=== PATIENT | female | born 1965 | race American Indian/Alaskan Native ===

== ENCOUNTER 2017-10-24 03:31 | Emergency (ER) | payer OTHER ==
[2017-10-24] MEDS ORDERED: Acetaminophen/oxyCODONE 325-5 MG Tab PO ONE (03:52)
--- NOTE | 2017-10-24 04:10 | EDM.PDOC ---
ED HPI GENERAL MEDICAL PROBLEM - General Chief Complaint: Upper Extremity Injury/Pain Stated Complaint: FALL, INJURED FINGER [id number] Time Seen by Provider: 10/24/17 03:50 Source of Information: Reports: Patient History Limitations: Reports: No Limitations - History of Present Illness INITIAL COMMENTS - FREE TEXT/NARRATIVE: ED with c/o pain to left hand and fifth finger. Reports falling over garden hose , landed on hand and bmbed mouth on ground, scraped lower lip and front left tooth doesn't feel right, not loose. Admits 6 beers since supper. No loss of consciousness. Right 5-Little finger Pain Score (Numeric/FACES): 6 - Related Data Allergies Allergy/AdvReac Type Severity Reaction Status Date / Time No Known Allergies Allergy Verified 10/24/17 04:03 Home Meds: Home Meds Lisinopril [Lisinopril] 1 tab PO DAILY 02/28/15 [History] Ranitidine [Zantac] 75 mg PO DAILY 05/03/15 [History] buPROPion [Wellbutrin SR] 150 mg PO BID 05/03/15 [History] Past Medical History Cardiovascular History: Reports: High Cholesterol, Hypertension Gastrointestinal History: Reports: GERD Social & Family History - Tobacco Use Smoking Status *Q: Current Every Day Smoker Years of Tobacco use: 20 Packs/Tins Daily: 10 - Caffeine Use Caffeine Use: Reports: Coffee, Soda - Alcohol Use Days Per Week of Alcohol Use: 0 Date of Last Drink: 10/24/17 Time of Last Drink: 01:00 - Recreational Drug Use Recreational Drug Use: No Review of Systems - Review of Systems Review Of Systems: ROS reveals no pertinent complaints other than HPI. ED EXAM, GENERAL - Physical Exam Exam: See Below Exam Limited By: No Limitations General Appearance: Alert, Mild Distress Eye Exam: Bilateral Eye: EOMI Ears: Normal External Exam Nose: Normal Inspection Throat/Mouth: Other (teeth firm, minimal tenderness to palpation of upper, lateral lower edge, rough. ). No: Normal Lips (5mmcirclular superficial abrasion to mid lower lip. no active bleeding) Head: Atraumatic, Normocephalic Neck: Normal Inspection Respiratory/Chest: No Respiratory Distress, Normal Breath Sounds Cardiovascular: Regular Rate, Rhythm Extremities: Other (slight swelling distal metarpal 4-5th deformity proximal 5th finger. slight tenderness mid forearm). No: Normal Inspection Neurological: Alert, Oriented, Normal Cognition Psychiatric: Normal Affect, Normal Mood Skin Exam: Warm, Dry, Normal Color, Ecchymosis (left distal 45th and 5th metacapal ) ED TRAUMA EXTREMITY PROCEDURES - Joint Reduction Site: Finger (L) (5th) Technique: Traction/Counter Traction Number of Attempts: 1 Post-Reduction Imaging: Acceptably Reduced Joint Reduction Complications: No Progress/Comments: 4th and 4th fingers tommy taped, metal Metacarpal splint applied. Course - Vital Signs Last Recorded V/S: Last Vital Signs Temp 96.9 F 10/24/17 03:50 Pulse 78 10/24/17 03:50 Resp 19 10/24/17 03:50 BP 107/52 L 10/24/17 03:50 Pulse Ox 100 10/24/17 03:50 - Orders/Labs/Meds Meds: Medications Discontinued Medications Generic Name Dose Route Start Last Admin Trade Name Freq PRN Reason Stop Dose Admin Oxycodone/Acetaminophen 1 tab 10/24/17 03:52 10/24/17 04:07 Percocet 325-5 Mg PO 10/24/17 03:53 1 tab ONETIME ONE Administration - Radiology Interpretation Free Text/Narrative:: Transverse fracture of base of proximal phalnyx 5th digit with adequate alinment Departure - Departure Time of Disposition: 04:32 Disposition: Home, Self-Care 01 Condition: Good Clinical Impression: Fracture dislocation of finger Qualifiers: Encounter type: initial encounter Fracture type: closed Qualified Code(s): S62.609A - Fracture of unspecified phalanx of unspecified finger, initial encounter for closed fracture Fall Qualifiers: Encounter type: initial encounter Qualified Code(s): W19.XXXA - Unspecified fall, initial encounter - Discharge Information Instructions: Finger Fracture, [id number] Forms: ED Department Discharge Additional Instructions: tylenol 650mg every 4 hours asneeded for pain or ibuprofen 600mg every 6 hours as needed for pain splint, tommy tape 4th and 5th left fingers, splint follow up with Sheryl Rowe Thursday for ortho referral, ice pack to decrease swelling, elevate on pillow
[2017-10-24 05:14] VITALS: BP 103/55
== END 2017-10-24 05:25 | disposition home or self-care (01) ==
LOC: DL.ED 03:31
DX: S62.616A Displaced fracture of proximal phalanx of right little finger, initial encounter for closed fracture (principal); S00.511A Abrasion of lip, initial encounter; I10 Essential (primary) hypertension; E78.00 Pure hypercholesterolemia, unspecified; Z79.899 Other long term (current) drug therapy; F17.210 Nicotine dependence, cigarettes, uncomplicated; W01.198A Fall on same level from slipping, tripping and stumbling with subsequent striking against other object, initial encounter
CPT/HCPCS: 26770; 73120; 73140; 99283; A9270

== ENCOUNTER 2017-10-27 20:19 | Emergency (ER) | payer OTHER ==
[2017-10-27] MEDS ORDERED: Cyclobenzaprine 10 MG Tab PO ONE (20:20)
--- NOTE | 2017-10-27 22:11 | EDM.PDOC ---
ED HPI GENERAL MEDICAL PROBLEM - General Chief Complaint: Abdominal Pain Stated Complaint: SIDE PAIN GOING AROUND TO BACK, FELL SAT [id number] Time Seen by Provider: 10/27/17 21:00 Source of Information: Reports: Patient History Limitations: Reports: No Limitations - History of Present Illness INITIAL COMMENTS - FREE TEXT/NARRATIVE: c/o pain to right lower ribs, mild after fall this weekend, increasing last couple of days, tried clinic today , unable to get in. Tylenol and motrin not helping, difficulty trying to find comfortable position to lie in. Duration: Getting Worse Treatments MANAGER SOLUTION: Reports: NSAIDS Right Abdomen Pain Score (Numeric/FACES): 4 - Related Data Allergies Allergy/AdvReac Type Severity Reaction Status Date / Time No Known Allergies Allergy Verified 10/27/17 21:09 Home Meds: Home Meds Lisinopril [Lisinopril] 1 tab PO DAILY 02/28/15 [History] Ranitidine [Zantac] 75 mg PO DAILY 05/03/15 [History] buPROPion [Wellbutrin SR] 150 mg PO BID 05/03/15 [History] Past Medical History HEENT History: Reports: Impaired Vision Cardiovascular History: Reports: High Cholesterol, Hypertension Gastrointestinal History: Reports: GERD Social & Family History - Tobacco Use Smoking Status *Q: Current Every Day Smoker Years of Tobacco use: 25 Packs/Tins Daily: 0.5 - Caffeine Use Caffeine Use: Reports: Coffee - Alcohol Use Days Per Week of Alcohol Use: 0 - Recreational Drug Use Recreational Drug Use: No ED ROS GENERAL - Review of Systems Review Of Systems: ROS reveals no pertinent complaints other than HPI. ED EXAM, GENERAL - Physical Exam Exam: See Below Exam Limited By: No Limitations General Appearance: Alert, Mild Distress Eye Exam: Bilateral Eye: EOMI Ears: Normal External Exam Nose: Normal Inspection Throat/Mouth: Normal Inspection, Perioral Cyanosis Head: Atraumatic Neck: Normal Inspection, Full Range of Motion Respiratory/Chest: No Respiratory Distress, Lungs Clear, Normal Breath Sounds Cardiovascular: Normal Peripheral Pulses, Regular Rate, Rhythm GI/Abdominal: Normal Bowel Sounds, Soft Back Exam: Paraspinal Tenderness (right lower), Other (tender right lwer lateral ribs with palpation, increase pain when moving.). No: Vertebral Tenderness Neurological: Alert, Oriented Psychiatric: Normal Affect Skin Exam: Warm, Dry, Intact, Normal Color Course - Vital Signs Last Recorded V/S: Last Vital Signs Temp 97.4 F 10/27/17 23:01 Pulse 72 10/27/17 23:01 Resp 18 10/27/17 23:01 BP 140/75 10/27/17 23:01 Pulse Ox 98 10/27/17 23:01 - Orders/Labs/Meds Meds: Medications Discontinued Medications Generic Name Dose Route Start Last Admin Trade Name Den PRN Reason Stop Dose Admin Cyclobenzaprine HCl Confirm 10/27/17 23:08 Flexeril Administered 10/27/17 23:09 Dose 20 mg .ROUTE .STK-MED ONE Cyclobenzaprine HCl 20 mg 10/27/17 20:20 Flexeril PO 10/27/17 20:21 .STK-MED ONE - Radiology Interpretation Free Text/Narrative:: Right ribs: no fracture Departure - Departure Time of Disposition: 23:15 Disposition: Home, Self-Care 01 Condition: Good Clinical Impression: Rib pain on right side, History of recent fall - Discharge Information Instructions: Chest Wall Pain, [id number] Referrals: Sheryl Rowe [facility] [employer] [Primary Care Provider] - Forms: ED Department Discharge Additional Instructions: alternate tylenol 650mg and ibuprofen 600mg every 4 hours as needed for pain, flexeril 10mg one every 8 hours as needed for muscle spasm light activity splint area with movement and coughing Ortho follow up on hand as scheduled
[2017-10-27 23:02] VITALS: BP 140/75
[2017-10-27] MEDS ORDERED: Cyclobenzaprine 10 MG Tab ONE (23:08)
== END 2017-10-27 23:17 | disposition home or self-care (01) ==
LOC: DL.ED 20:19
DX: R07.81 Pleurodynia (principal); E78.00 Pure hypercholesterolemia, unspecified; I10 Essential (primary) hypertension; Z79.899 Other long term (current) drug therapy; W19.XXXA Unspecified fall, initial encounter
CPT/HCPCS: 71020; 99284; A9270

== ENCOUNTER 2018-07-04 18:44 | Emergency (ER) | payer OTHER ==
[2018-07-04 18:59] VITALS: BP 134/76
[2018-07-04 19:50] LABS: ANION GAP 11.6; CHLORIDE,CL 107 mmol/L (101-111); SODIUM,NA 140 mmol/L (135-145)
[2018-07-04] MEDS ORDERED: LORazepam 1 MG Tab PO ONE (20:03)
--- NOTE | 2018-07-04 20:08 | EDM.PDOC ---
ED HPI GENERAL MEDICAL PROBLEM - General Chief Complaint: Cardiovascular Problem Stated Complaint: HEART RACING, DOESN'T FEEL GOOD [id number] Time Seen by Provider: 07/04/18 20:03 Source of Information: Reports: Patient History Limitations: Reports: No Limitations - History of Present Illness INITIAL COMMENTS - FREE TEXT/NARRATIVE: lost spouse last week been upset not sleeping today felt weak and heart started racing. Neck Pain Score (Numeric/FACES): 5 - Related Data Allergies Allergy/AdvReac Type Severity Reaction Status Date / Time No Known Allergies Allergy Verified 07/04/18 18:59 Home Meds: Home Meds Lisinopril 1 tab PO DAILY 02/28/15 [History] Ranitidine [Zantac] 75 mg PO DAILY 05/03/15 [History] Past Medical History HEENT History: Reports: Impaired Vision Cardiovascular History: Reports: High Cholesterol, Hypertension Gastrointestinal History: Reports: GERD Endocrine/Metabolic History: Reports: Hyperparathyroidism Social & Family History - Tobacco Use Smoking Status *Q: Current Every Day Smoker Years of Tobacco use: 20 Packs/Tins Daily: 0.5 Second Hand Smoke Exposure: Yes - Caffeine Use Caffeine Use: Reports: Coffee - Recreational Drug Use Recreational Drug Use: No ED ROS GENERAL - Review of Systems Review Of Systems: ROS reveals no pertinent complaints other than HPI. ED EXAM, GENERAL - Physical Exam Exam: See Below Exam Limited By: No Limitations General Appearance: Alert, WD/WN, Anxious, Mild Distress Ears: Hearing Grossly Normal Throat/Mouth: Normal Voice, No Airway Compromise Head: Atraumatic Neck: Non-Tender, Full Range of Motion Respiratory/Chest: No Respiratory Distress Cardiovascular: Regular Rate, Rhythm GI/Abdominal: Soft, Non-Tender Neurological: Alert, Oriented, Normal Cognition, Normal Gait, No Motor/Sensory Deficits Psychiatric: Anxious, Tearful Skin Exam: Warm, Dry, Normal Color Lymphatic: No Adenopathy Course - Vital Signs Last Recorded V/S: Last Vital Signs Temp 36.9 C 07/04/18 18:55 Pulse 80 07/04/18 18:55 Resp 18 07/04/18 18:55 BP 134/76 07/04/18 18:55 Pulse Ox 97 07/04/18 18:55 - Orders/Labs/Meds Orders: Active Orders 24 hr Category Date Time Status EKG 12 Lead [EKG Documentation Completion] [RC] STAT Care 07/04/18 19:13 Active Chest 1V Frontal [CR] Urgent Exams 07/04/18 19:39 Taken LORazepam [Ativan] Med 07/04/18 20:03 Once 1 mg PO ONETIME ONE Labs: Laboratory Tests 07/04/18 07/04/18 Range/Units 19:23 19:23 WBC 6.8 (5.0-10.0) 10^3/uL RBC 4.64 (4.2-5.4) 10^6/uL Hgb 14.5 (12.0-16.0) g/dL Hct 43.9 (37.0-47.0) % MCV 94.6 (80-100) fL MCH 31.3 (27.0-34.0) pg MCHC 33.0 (33.0-35.0) g/dL Plt Count 249 (150-450) 10^3/uL Neut % (Auto) 61.3 (42.2-75.2) % Lymph % (Auto) 30.9 (20.5-50.1) % [place] % (Auto) 5.6 (2-8) % Eos % (Auto) 1.9 (1.0-3.0) % Baso % (Auto) 0.3 (0.0-1.0) % Sodium 140 (135-145) mmol/L Potassium 3.6 (3.6-5.0) mmol/L Chloride 107 (101-111) mmol/L Carbon Dioxide 25.0 (21.0-31.0) mmol/L Anion Gap 11.6 BUN 11 (7-18) mg/dL Creatinine 0.7 (0.6-1.3) mg/dL Est Cr Clr Drug Dosing 87.01 mL/min Estimated GFR (MDRD) > 60 BUN/Creatinine Ratio 15.71 Glucose 149 H (74-105) mg/dL Calcium 9.9 (8.4-10.2) mg/dl Total Bilirubin 0.4 (0.2-1.0) mg/dL AST 19 (10-42) IU/L ALT 13 (10-60) IU/L Alkaline Phosphatase 78 (42-121) IU/L Troponin I < 0.02 (0.00-0.02) ng/ml Total Protein 6.8 (6.7-8.2) g/dl Albumin 4.0 (3.2-5.5) g/dl Globulin 2.8 Albumin/Globulin Ratio 1.43 - Re-Assessments/Exams Free Text/Narrative Re-Assessment/Exam: 07/04/18 20:05 results discussed with pt Departure - Departure Time of Disposition: 20:06 Disposition: Home, Self-Care 01 Condition: Good Clinical Impression: Palpitations, Reaction, situational, acute, to stress Insomnia Qualifiers: Insomnia type: adjustment Qualified Code(s): F51.02 - Adjustment insomnia Instructions: Palpitations, [id number] Additional Instructions: 1) rest 2) follow up at clinic rx given; hydroxyzine 25mg bid for anxiety x 20 - My Orders Last 24 Hours: My Active Orders 07/04/18 19:13 EKG 12 Lead [EKG Documentation Completion] [RC] STAT 07/04/18 19:39 Chest 1V Frontal [CR] Urgent 07/04/18 20:03 LORazepam [Ativan] 1 mg PO ONETIME ONE - Assessment/Plan Last 24 Hours: My Active Orders 07/04/18 19:13 EKG 12 Lead [EKG Documentation Completion] [RC] STAT 07/04/18 19:39 Chest 1V Frontal [CR] Urgent 07/04/18 20:03 LORazepam [Ativan] 1 mg PO ONETIME ONE
== END 2018-07-04 20:22 | disposition home or self-care (01) ==
LOC: DL.ED 18:44
DX: R00.2 Palpitations (principal); F51.02 Adjustment insomnia; F43.0 Acute stress reaction; F43.20 Adjustment disorder, unspecified; I10 Essential (primary) hypertension; Z79.899 Other long term (current) drug therapy; F17.210 Nicotine dependence, cigarettes, uncomplicated
CPT/HCPCS: 36415; 71045; 80053; 84484; 85025; 93005; 99285; A9270

== ENCOUNTER 2022-05-11 19:21 | Emergency (ER) | payer BC, OTHER ==
[2022-05-11] MEDS ORDERED: Amoxicillin/Clavulanate K 875-125 MG Tab PO ONE (19:22)
[2022-05-11 19:48] VITALS: BP 123/75; PULSE 77
[2022-05-11] MEDS: Amoxicillin/Clavulanate K 875-125 MG Tab ONE (21:30)
== END 2022-05-11 20:25 | disposition home or self-care (01) ==
LOC: DL.ED 19:21
DX: H66.011 Acute suppurative otitis media with spontaneous rupture of ear drum, right ear (principal); E78.00 Pure hypercholesterolemia, unspecified; I10 Essential (primary) hypertension; K21.9 Gastro-esophageal reflux disease without esophagitis; F17.210 Nicotine dependence, cigarettes, uncomplicated; Z79.899 Other long term (current) drug therapy
CPT/HCPCS: 99282; A9270; 99283

== ENCOUNTER 2022-06-13 20:04 | Emergency (ER) | payer OTHER ==
[2022-06-13] MEDS ORDERED: Sodium Chloride 0.9% 10 ML Syringe FLUSH PRN (20:22)
[2022-06-13 21:00] LABS: ANION GAP 8.6 mEq/L (7-13)
[2022-06-13] MEDS ORDERED: Iopamidol 612 MG/ML 100 ML Bottle IVPUSH ONE (22:02)
[2022-06-13] MEDS ORDERED: Sodium Chloride 0.9% 1,000 ML IV ONE (22:03)
[2022-06-13] MEDS ORDERED: Pantoprazole 40 MG in Sodium Chloride 0.9% 100 ML IV ONE (23:50)
[2022-06-13] MEDS ORDERED: GI Cocktail Oral Solution 30 ML PO ONE (23:51)
[2022-06-14 01:00] VITALS: BP 142/66; PULSE 54
== END 2022-06-14 02:00 | disposition home or self-care (01) ==
LOC: DL.ED 20:04
DX: K29.00 Acute gastritis without bleeding (principal); E78.00 Pure hypercholesterolemia, unspecified; I10 Essential (primary) hypertension; Z79.899 Other long term (current) drug therapy; Z79.84 Long term (current) use of oral hypoglycemic drugs
CPT/HCPCS: 36415; 74177; 80053; 81001; 83690; 83735; 85025; 87086; 96361; 96365; 99284; 99284-25; A9270-GY; C9113; J7030; Q9967

== ENCOUNTER 2022-08-12 06:02 | Day surgery (SDC) | payer OTHER ==
[2022-08-12] MEDS ORDERED: fentaNYL 100 MCG/2 ML SDV IV ONE (06:03)
[2022-08-12] MEDS ORDERED: Midazolam 1 MG/ML 2 ML SDV IV ONE (06:03)
[2022-08-12] MEDS ORDERED: fentaNYL 100 MCG/2 ML SDV ONE (06:05)
[2022-08-12] MEDS ORDERED: Midazolam 1 MG/ML 2 ML SDV ONE (06:05)
[2022-08-12] MEDS: Dextrose 5%-0.45% NaCl 1,000 ML IV SCH (06:27)
[2022-08-12] MEDS: fentaNYL 100 MCG/2 ML SDV IV ONE ×2 (07:29→07:30)
[2022-08-12] MEDS: Midazolam 1 MG/ML 2 ML SDV IV ONE ×2 (07:31→07:32)
[2022-08-12] MEDS ORDERED: Sodium Chloride 0.9% 10 ML Syringe FLUSH PRN (07:35)
[2022-08-12] MEDS ORDERED: Sodium Chloride 0.9% 10 ML Syringe FLUSH SCH (09:00)
[2022-08-12 11:09] VITALS: BP 138/54; PULSE 58
== END 2022-08-12 09:45 | disposition home or self-care (01) ==
LOC: DL.ENDO 06:02
PROVIDERS: ATTEND Internal Medicine Gastroenterology
DX: K29.50 Unspecified chronic gastritis without bleeding (principal); K31.89 Other diseases of stomach and duodenum; F17.210 Nicotine dependence, cigarettes, uncomplicated; E66.09 Other obesity due to excess calories; I10 Essential (primary) hypertension; E78.5 Hyperlipidemia, unspecified; K21.9 Gastro-esophageal reflux disease without esophagitis; E55.9 Vitamin D deficiency, unspecified; M81.0 Age-related osteoporosis without current pathological fracture; M79.7 Fibromyalgia; E21.0 Primary hyperparathyroidism; F41.1 Generalized anxiety disorder; G47.00 Insomnia, unspecified; E11.9 Type 2 diabetes mellitus without complications; H91.90 Unspecified hearing loss, unspecified ear; Z68.28 Body mass index [BMI] 28.0-28.9, adult
CPT/HCPCS: 87077; J2250; J3010; J7042

== ENCOUNTER → 2022-08-19 | Day surgery (SDC) | payer OTHER ==
[~2022-08-19] MED LIST: Dextrose 5%-0.45% NaCl 1,000 ML IV SCH; Midazolam 1 MG/ML 2 ML SDV ONE; Sodium Chloride 0.9% 10 ML Syringe FLUSH PRN; Sodium Chloride 0.9% 10 ML Syringe FLUSH SCH; fentaNYL 100 MCG/2 ML SDV ONE
== END ==
LOC: DL.ENDO 06:00
PROVIDERS: ATTEND Internal Medicine Gastroenterology
DX: Z12.11 Encounter for screening for malignant neoplasm of colon (principal); K57.30 Diverticulosis of large intestine without perforation or abscess without bleeding; F17.210 Nicotine dependence, cigarettes, uncomplicated; E66.09 Other obesity due to excess calories; I10 Essential (primary) hypertension; E78.5 Hyperlipidemia, unspecified; H91.90 Unspecified hearing loss, unspecified ear; K21.9 Gastro-esophageal reflux disease without esophagitis; E55.9 Vitamin D deficiency, unspecified; M81.0 Age-related osteoporosis without current pathological fracture; M79.7 Fibromyalgia; F41.1 Generalized anxiety disorder; E11.9 Type 2 diabetes mellitus without complications; E21.0 Primary hyperparathyroidism; Z68.28 Body mass index [BMI] 28.0-28.9, adult